=== PATIENT | male | born 1970 | race African-American/Black ===

== ENCOUNTER 2020-11-22 09:57 | Outpatient (REF) | payer OTHER, SELFPAY ==
--- NOTE | ~2020-11-22 | XR_ITS ---
EXAMINATION: XR FINGER, RIGHT CLINICAL INFORMATION: Pain COMPARISON: None TECHNIQUE: Three views of the right third finger. FINDINGS: Bone alignment is normal. No acute fracture or dislocation is seen. There is angulation of the shaft of the metacarpal bone questionable for old trauma. Joint spaces are normal. Soft tissues are normal. XR/XR finger RT min 2V IMPRESSION: Normal right third finger.
== END 2020-11-22 09:58 | disposition home or self-care (01) ==
LOC: HO.XRAY 09:57
PROVIDERS: PCP Internal Medicine; Visit Provider Internal Medicine
DX: M79.644 Pain in right finger(s) (principal)
CPT/HCPCS: 73140

== ENCOUNTER 2021-02-27 08:40 | Outpatient (REF) | payer OTHER, SELFPAY ==
[2021-02-27 10:17] LABS: Alanine Aminotransferase 15 U/L (0-40); Albumin Level 4.4 g/dL (3.5-5.0); Alkaline Phosphatase 49 U/L (39-117); Anion Gap 11 (12-20); Aspartate Amino Transferase 30 U/L (5-37); Bilirubin Total 1.3 mg/dL (0.0-1.0); Blood Urea Nitrogen 9 mg/dL (9-16); Calcium 9.1 mg/dL (8.4-10.2); Carbon Dioxide 28 mmol/L (22-29); Chloride 104 mmol/L (96-108); Cholesterol 138 mg/dL; Estimated Glomerular Filt Rate > 60; Glucose Fasting 93 mg/dL (60-99); HDL Cholesterol 62 mg/dL; LDL Cholesterol Calculated 65 mg/dl; Potassium 4.4 mmol/L (3.3-5.1); Sodium 139 mmol/L (135-145); Total Protein 6.9 g/dL (6.5-8.0); Triglycerides 55 mg/dL
[2021-02-27 10:22] LABS: PSA,Total (Free>4and<10) 0.33 ng/mL (0.00-4.00)
== END 2021-02-27 08:41 | disposition home or self-care (01) ==
LOC: HO.LAB 08:40
PROVIDERS: PCP Internal Medicine; Visit Provider Internal Medicine
DX: Z12.5 Encounter for screening for malignant neoplasm of prostate (principal); I10 Essential (primary) hypertension; E78.5 Hyperlipidemia, unspecified
CPT/HCPCS: 36415; 80053; 80061; 84153

== ENCOUNTER 2021-09-12 16:47 | Outpatient (REF) | payer OTHER, SELFPAY ==
[2021-09-12 18:23] LABS: Alanine Aminotransferase 15 U/L (0-40); Albumin Level 4.5 g/dL (3.5-5.0); Alkaline Phosphatase 61 U/L (39-117); Anion Gap 10 (12-20); Aspartate Amino Transferase 21 U/L (5-37); Bilirubin Total 0.7 mg/dL (0.0-1.0); Blood Urea Nitrogen 12 mg/dL (9-16); Calcium 9.5 mg/dL (8.4-10.2); Carbon Dioxide 31 mmol/L (22-29); Chloride 105 mmol/L (96-108); Estimated Glomerular Filt Rate > 60; Glucose Random 78 mg/dL (60-115); Sodium 142 mmol/L (135-145); Total Protein 7.6 g/dL (6.5-8.0)
== END 2021-09-12 16:48 | disposition home or self-care (01) ==
LOC: HO.LAB 16:47
PROVIDERS: Nurse Practitioner Family; Visit Provider Internal Medicine
DX: M25.512 Pain in left shoulder (principal)
CPT/HCPCS: 36415; 80053; 82550

== ENCOUNTER 2021-09-13 13:29 | Outpatient (REF) | payer OTHER, SELFPAY ==
--- NOTE | ~2021-09-13 | XR_ITS ---
EXAMINATION: XR SHOULDER, LEFT CLINICAL INFORMATION: Pain in the left shoulder COMPARISON: None TECHNIQUE: AP external rotation, Grashey, scapular Y, and axillary views of the left shoulder. FINDINGS: The bones and soft tissues are normal. No fracture. Glenohumeral and acromioclavicular alignment is anatomic with normal joint space. No abnormal soft tissue calcifications. XR/XR shoulder LT min 2V IMPRESSION: Normal left shoulder.
== END 2021-09-13 13:30 | disposition home or self-care (01) ==
LOC: HO.XRAY 13:29
PROVIDERS: PCP Internal Medicine; Visit Provider Nurse Practitioner Family
DX: M25.512 Pain in left shoulder (principal); R74.8 Abnormal levels of other serum enzymes
CPT/HCPCS: 73030

== ENCOUNTER 2021-11-21 10:42 | Outpatient (REF) | payer OTHER, SELFPAY ==
[2021-11-21 12:34] LABS: Alanine Aminotransferase 15 U/L (0-40); Albumin Level 4.4 g/dL (3.5-5.0); Alkaline Phosphatase 48 U/L (39-117); Anion Gap 14 (12-20); Aspartate Amino Transferase 22 U/L (5-37); Bilirubin Total 0.7 mg/dL (0.0-1.0); Blood Urea Nitrogen 12 mg/dL (9-16); Calcium 9.7 mg/dL (8.4-10.2); Carbon Dioxide 25 mmol/L (22-29); Chloride 106 mmol/L (96-108); Cholesterol 146 mg/dL; Estimated Glomerular Filt Rate > 60; Glucose Fasting 96 mg/dL (60-99); HDL Cholesterol 56 mg/dL; LDL Cholesterol Calculated 81 mg/dl; Potassium 4.2 mmol/L (3.3-5.1); Sodium 141 mmol/L (135-145); Total Protein 7.2 g/dL (6.5-8.0); Triglycerides 46 mg/dL
[2021-11-27 15:02] LABS: Vitamin D 25-OH, D2 <4 ng/mL; Vitamin D 25-OH, D3 11 ng/mL; Vitamin D 25-OH, Total 11 ng/mL (30-100)
== END 2021-11-21 10:43 | disposition home or self-care (01) ==
LOC: HO.LAB 10:42
PROVIDERS: PCP Internal Medicine; Visit Provider Internal Medicine
DX: E55.9 Vitamin D deficiency, unspecified (principal); E78.5 Hyperlipidemia, unspecified; R74.8 Abnormal levels of other serum enzymes; M25.512 Pain in left shoulder
CPT/HCPCS: 36415; 80053; 80061; 82306; 82550

== ENCOUNTER 2022-07-01 08:36 | Outpatient (REF) | payer OTHER, SELFPAY ==
[2022-07-01 13:35] LABS: Vitamin D 25-OH Total 42.4 ng/mL (>30)
== END 2022-07-01 08:37 | disposition home or self-care (01) ==
LOC: HO.LAB 08:36
PROVIDERS: PCP Internal Medicine; Visit Provider Nurse Practitioner Family
DX: R79.89 Other specified abnormal findings of blood chemistry (principal)
CPT/HCPCS: 36415; 82306

== ENCOUNTER 2022-11-08 12:36 | Outpatient (REF) | payer OTHER, SELFPAY ==
[2022-11-08 14:14] LABS: Alanine Aminotransferase 16 U/L (0-40); Albumin Level 4.2 g/dL (3.5-5.0); Alkaline Phosphatase 56 U/L (39-117); Anion Gap 15 (12-20); Aspartate Amino Transferase 21 U/L (5-37); Bilirubin Total 0.9 mg/dL (0.0-1.0); Blood Urea Nitrogen 10 mg/dL (9-16); Calcium 9.2 mg/dL (8.4-10.2); Carbon Dioxide 25 mmol/L (22-29); Chloride 105 mmol/L (96-108); Cholesterol 145 mg/dL; Estimated Glomerular Filt Rate > 60; Glucose Fasting 87 mg/dL (60-99); HDL Cholesterol 51 mg/dL; LDL Cholesterol Calculated 83 mg/dl; Potassium 4.2 mmol/L (3.3-5.1); Sodium 141 mmol/L (135-145); Total Protein 6.7 g/dL (6.5-8.0); Triglycerides 56 mg/dL
[2022-11-08 14:31] LABS: TSH reflex Free T4 0.76 uIU/mL (0.32-4.0)
== END 2022-11-08 12:37 | disposition home or self-care (01) ==
LOC: HO.LAB 12:36
PROVIDERS: PCP Internal Medicine; Visit Provider Nurse Practitioner Family
DX: Z13.29 Encounter for screening for other suspected endocrine disorder (principal); E78.5 Hyperlipidemia, unspecified; I10 Essential (primary) hypertension
CPT/HCPCS: 36415; 80053; 80061; 84443

== ENCOUNTER 2023-03-19 12:05 | Outpatient (REF) | payer OTHER, SELFPAY ==
--- NOTE | ~2023-03-19 | US_ITS ---
EXAMINATION: US THYROID CLINICAL INFORMATION: Localized swelling, mass and lump, neck. COMPARISON: None available. TECHNIQUE: Linear transducer grayscale and color Doppler examination with attention to the region of the thyroid. FINDINGS: SIZE: Measurements of the thyroid lobes and nodules are given in sagittal, anteroposterior and transverse dimensions respectively. Right Thyroid Lobe: 5.1 x 1.6 x 1.8 cm, volume 7.7 mL. Parenchyma: The gland echotexture is homogeneous. Thyroid vascularity is normal. Left Thyroid Lobe: 4.6 x 1.6 x 1.4 cm, volume 5.4 mL. Parenchyma: The gland echotexture is homogeneous. Thyroid vascularity is increased. Isthmus: 0.3 cm in maximum AP dimension. No focal thyroid nodule is seen. NODES: No lymphadenopathy is seen in the tissue surrounding the thyroid gland. Area of palpable concern corresponds to a nonenlarged 0.6 x 1.0 x 0.4 cm left cervical node not pathologically enlarged. US/US thyroid IMPRESSION: Unremarkable thyroid ultrasound. Area of palpable concern corresponds to a 0.4 cm short axis left cervical node, not pathologically enlarged. ACR TI-RADS RECOMMENDATION REFERENCE: Ultrasound-guided fine-needle aspiration, followup ultrasound, no further follow up. * TR1 (0 point) and TR2 (2 points): No FNA or follow up. * TR3 (3 points): FNA if more than or equal to 2.5 cm in maximum dimension, followup ultrasound in 1, 3 and 5 years if 1.5 to 2.4 cm in maximum dimension. * TR4 (4-6 points): FNA if more than or equal to 1.5 cm in maximum dimension, followup ultrasound in 1, 2, 3 and 5 years if 1 to 1.4 cm in maximum dimension. * TR5 (more than or equal to 7 points): FNA if more than or equal to 1 cm in maximum dimension, followup ultrasound every year for 5 years if 0.5 to 0.9 cm in maximum dimension. * TR3, TR4 or TR5 nodules that are below the size threshold for followup receive no follow up.
== END 2023-03-19 12:06 | disposition home or self-care (01) ==
LOC: HO.US 12:05
PROVIDERS: PCP Internal Medicine; Visit Provider Nurse Practitioner Family
DX: R22.1 Localized swelling, mass and lump, neck (principal)
CPT/HCPCS: 76536

== ENCOUNTER 2023-03-31 10:54 | Outpatient (AMB) | payer OTHER, SELFPAY ==
--- NOTE | 2023-03-31 11:05 | A.OFFPC_ITS ---
Vital Signs 03/31/23 11:10 Height 5 ft 11 in Weight 198 lb BMI 27.6 BP 112/80 Blood Pressure Location Lt brachial Position Sitting Intake Visit Reasons: HTN, HLD Intake Note: Patient here for a follow up HTN, HLD Block Tester Required: No Accompanied by: Self / Same As Patient Allergies No Known Allergies [No Known Allergies*] Allergy (Verified 03/31/23 11:23) Medication List - Last Reconciled 03/31/23 by Earlene Almonte MD albuterol sulfate 90 mcg/actuation (Ventolin HFA) 2 puffs inhalation Q4-6H PRN amlodipine 10 mg PO DAILY 90 days atorvastatin 20 mg PO DAILY 90 days cholecalciferol (vitamin D3) 50 mcg PO DAILY 90 days lisinopril 5 mg PO DAILY pantoprazole 40 mg PO DAILY Tobacco use date assessed: 03/12/23 Dental Screening Dental Screen Date: 03/31/23 Did you have a dental visit in the last 12 months?: Yes Did you have a dental problem in the last 6 months where you did not have access to dental care?: No Was dental information given to patient?: Patient has dentist HPI HPI Comments History of Present Illness Details This is a 52-year-old male with hypertension, dyslipidemia and GERD that comes today for follow-up on his conditions. Blood pressure stable. Last lipid panel was well controlled. GERD stable with PPIs as needed. Thyroid ultrasound done recently revealed that the thyroid is normal and he has cervical lymphadenopathy that is not pathologically enlarged. He denies any fever or night sweats. He said he has lost weight although has gained 2 lb from last office visit. I advised him to monitor his weight and if he keeps losing weight, start having night sweats or fever or fatigue to call us immediately. He also have hemorrhoids that bothers him and I will refer him to surgery. 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 [facility] Medical History (Updated 03/31/23 @ 11:40 by Earlene Almonte MD) Dyslipidemia Dyspnea Essential hypertension Finger pain, right GERD (gastroesophageal reflux disease) Overweight (BMI 25.0-29.9) Right ear impacted cerumen Surgical History History of pneumothorax History of surgery on arm History of wisdom tooth extraction Family History Father Diabetes Hypertension Mother Hypertension Paternal Grandfather Colon cancer Paternal Uncle Colon cancer Social History Housing: House Alcohol intake: current Alcohol intake frequency: a few times a week Alcohol type: wine Patient Tobacco Use Status: Former Tobacco user Tobacco use type: Cigarette e-Cigarette/Vaping Use: Never Used Second Hand Smoke Exposure: No service: No Current occupational status: employed Current occupational exposures/hazards: No Cognitive needs: No Hearing needs: No Vision needs: Yes (Glasses) Questionnaire Thrive Questionnaire Date Thrive assessed: 11/07/22 JOSE-7 AMB Questionnaire JOSE-7 Date JOSE - 7 assessed: 11/07/22 Source: Developed by Drs. Torito Garcia, Liset Benoit, Trey Chan and colleagues, with an educational bruna from [email or web address]. Review of Systems Const All systems reviewed & are unremarkable except as noted in HPI and below Eyes Reports no additional complaints, Denies change in vision and Denies other visual disturbances Card Denies chest pain at rest, Denies chest pain with activity, Denies edema, Denies irregular heart rhythm, Denies claudication, Denies dyspnea, Denies dyspnea on exertion, Denies orthopnea, Denies paroxysmal nocturnal dyspnea and Denies slow heart rate Resp Denies cough, Denies dyspnea and Denies dyspnea on exertion GI Denies abdominal pain, Denies change in bowel habits, Denies excessive flatus, Denies nausea and Denies vomiting Denies urinary hesitancy, Denies urinary incontinence and Denies urinary urgency Musc Denies abnormal gait, Denies atrophy, Denies deformity and Denies limited range of motion Skin/Breast Denies bleeding lesions, Denies changing lesions and Denies rash Neuro Denies abnormal gait and Denies lack of coordination Physical exam (Primary Care) Vital Signs: Last Vital Signs BP 112/80 03/31/23 11:10 BMI result Body Mass Index 27.6 Tobacco/Smoking Status: Tobacco use Status Tobacco use date assessed 03/12/23 03/31/23 11:09 Patient Tobacco Use Status Former Tobacco user 03/31/23 11:09 Tobacco use type Cigarette 03/31/23 11:09 e-Cigarette/Vaping Use Never Used 03/31/23 11:09 Thrive Assessment: Date of Thrive Assessment Date Thrive assessed 11/07/22 03/31/23 11:09 Eyes General: appearance normal, both eyes and all related structures Eyelids: Yes eyelids normal Conjunctivae: conjunctivae normal Neck Lymphatic: lymphadenopathy Resp Effort & Inspection: normal respiratory effort Auscultation: clear to auscultation bilaterally Cardio Jugular venous distension: no JVD Rate: regular rate Rhythm: regular rhythm Heart sounds: S1 normal heart sound present and S2 normal heart sound present Extrem General: Yes full ROM Assessment and Plan Assessment & Plan (1) Essential hypertension: Code(s): I10 - Essential (primary) hypertension Plan: Continue lisinopril and amlodipine. Blood pressure goal is equal or less than 130/80. (2) Dyslipidemia: Code(s): E78.5 - Hyperlipidemia, unspecified Plan: Continue statins. (3) GERD (gastroesophageal reflux disease): Code(s): K21.9 - Gastro-esophageal reflux disease without esophagitis Qualifiers: Esophagitis presence: esophagitis presence not specified Qualified Code(s): K21.9 - Gastro-esophageal reflux disease without esophagitis Plan: Continue PPIs. (4) Cervical lymphadenopathy: Code(s): R59.0 - Localized enlarged lymph nodes Plan: Not pathologically enlarged. This will be monitor. Orders: Referrals General Surgery Referral K64.4 - Residual hemorrhoidal skin tags Ophthalmology Referral H40.9 - Unspecified glaucoma Coding Level of Care Code Est Pt Level 4 (45002) Diagnoses Essential hypertension I10 Dyslipidemia E78.5 GERD (gastroesophageal reflux disease) K21.9 Esophagitis presence: esophagitis presence not specified Cervical lymphadenopathy R59.0 Time Spent (min) 21
[2023-03-31 11:10] VITALS: BP 112/80; BMI 27.6
== END 2023-03-31 11:29 | disposition home or self-care (01) ==
PROVIDERS: PCP Internal Medicine; Visit Provider Internal Medicine
DX: I10 Essential (primary) hypertension (principal); E78.5 Hyperlipidemia, unspecified; K21.9 Gastro-esophageal reflux disease without esophagitis; R59.0 Localized enlarged lymph nodes
CPT/HCPCS: 99214

== ENCOUNTER 2023-04-09 14:59 | Outpatient (AMB) | payer OTHER, SELFPAY ==
[2023-04-09 15:11] VITALS: BP 133/77; PULSE 66; BMI 27.9
--- NOTE | 2023-04-09 15:11 | A.OFFVIS_ITS ---
Intake Vital Signs 04/09/23 15:11 Height 5 ft 11 in Weight 200 lb BMI 27.9 BP 133/77 Blood Pressure Location Lt brachial Position Sitting Pulse 66 Intake Visit Reasons: Residual hemorrhoidal skin lesions Intake Note: This patient presents for an assessment for painful hemorrhoids. Patient c/o; reports pain, denies rectal bleeding, denies constipation. Dairy Lab Technician Required: No Accompanied by: Self / Same As Patient Allergies No Known Allergies [No Known Allergies*] Allergy (Verified 04/09/23 15:19) Medication List - Last Reconciled 04/09/23 by Emre Lovett MD albuterol sulfate 90 mcg/actuation (Ventolin HFA) 2 puffs inhalation Q4-6H PRN amlodipine 10 mg PO DAILY 90 days atorvastatin 20 mg PO DAILY 90 days cholecalciferol (vitamin D3) 50 mcg PO DAILY 90 days lisinopril 5 mg PO DAILY pantoprazole 40 mg PO DAILY HPI Residual hemorrhoidal skin lesions HPI Details 52-year-old male referred for recurrent perianal pain and drainage. He says that this has been going on for 5 years now. He says that about once or twice a month, he would noticed some swelling on an area of his anus with a lump. This then would drained spontaneously with blood. He says that this gets painful frequently. He says that this has been going on for so many years but this seems to be worsening so he decided to finally have this examined. He denies any purulent drainage. He denies any constipation. [facility] Medical History Anal pain Dyslipidemia Dyspnea Essential hypertension Finger pain, right GERD (gastroesophageal reflux disease) Overweight (BMI 25.0-29.9) Right ear impacted cerumen Surgical History History of pneumothorax History of surgery on arm History of wisdom tooth extraction Family History Father Diabetes Hypertension Mother Hypertension Paternal Grandfather Colon cancer Paternal Uncle Colon cancer Social History Housing: House Alcohol intake: current Alcohol intake frequency: a few times a week Alcohol type: wine Patient Tobacco Use Status: Former Tobacco user Tobacco use type: Cigarette e-Cigarette/Vaping Use: Never Used Second Hand Smoke Exposure: No service: No Current occupational status: employed Current occupational exposures/hazards: No Cognitive needs: No Hearing needs: No Vision needs: Yes (Glasses) Review of Systems Const Denies chills and Denies fever(s) Card Denies chest pain, Denies dyspnea and Denies dyspnea on exertion Resp Denies cough, Denies dyspnea and Denies dyspnea on exertion GI Reports hematochezia and Denies change in bowel habits Denies hematuria and Denies difficulty urinating Musc Denies back pain and Denies limited range of motion Neuro Denies focal weakness and Denies convulsions Psych Denies depression and Denies mood swings Physical Exam Vital Signs: Last Vital Signs Pulse 66 04/09/23 15:11 BP 133/77 04/09/23 15:11 BMI result Body Mass Index 27.9 Const General: comfortable and no acute distress Orientation/consciousness: patient oriented x3 Neck Neck: Yes no lymphadenopathy Resp Auscultation: clear to auscultation bilaterally Cardio Rhythm: regular rhythm GI Other: Rectal exam shows no obvious no induration, no lesions, small external hemorrhoids, anoscopy as described Palpation (GI): Soft to palpation, nontender and no guarding Neuro General: patient oriented x3 Office Procedures Anoscopy He was in estiven-knife position. The anoscope was gently inserted. A full examination of the entire anal canal was done. He had small internal hemorrhoids, with no obvious induration, no obvious internal sinus but he was tender diffusely mostly on the anterior area. There are no palpable masses. [id number] Assessment & Plan Assessment & Plan (1) Anal pain: Code(s): K62.89 - Other specified diseases of anus and rectum Plan: He describes anal pain with recurrent swelling and drainage as above. I do not see any obvious abscess or any obvious fistulous tract. He does have significant tenderness. I told him that I can bring him to the operating room for an exam under anesthesia. It is possible that he may have an occult fistula tract. I do not see any fissure at this time. Explained to him that technique of fistulotomy or seton placement as well as possible hemorrhoidectomy. I reviewed the risks i ncluding but not limited to bleeding and infections, as well as the benefits and alternatives. He wants to proceed as he has been miserable for many years. Coding Level of Care Code New Pt Level 3 (70514) Diagnoses Anal pain K62.89 CPT Codes Details - CPT: 11960-Troxvhui ([id number])
== END 2023-04-09 15:43 | disposition home or self-care (01) ==
PROVIDERS: PCP Internal Medicine; Referring Provider Internal Medicine; Visit Provider Surgery
DX: K62.89 Other specified diseases of anus and rectum (principal)
CPT/HCPCS: 46600; 99203

== ENCOUNTER → 2023-04-09 14:59 | Outpatient (BNVA) | payer OTHER, SELFPAY | PROVIDERS: PCP Internal Medicine; Referring Provider Internal Medicine; Visit Provider Surgery | DX: K62.89 Other specified diseases of anus and rectum (principal) | CPT/HCPCS: 46600 ==

== ENCOUNTER 2023-05-02 09:58 | Day surgery (SDC) | payer OTHER, SELFPAY ==
[2023-04-30 13:15] VITALS: BMI 27.9
--- NOTE | 2023-05-01 11:56 | HO.ANESPROP2 ---
Documented by User: Farzana Geiger NP 05/01/23 11:58 HPI - Anesthesia Eval Consult details Narrative: 52yo M for Exam under Anesthesia poss fistulotomy, poss seton placement, poss hemorrhoidectomy PMFSH Active Problems Active Problems: All Active Problems (Updated 04/09/23 @ 15:42 by Emre Lovett MD) Anal pain (Acute) Cervical lymphadenopathy (Acute) External hemorrhoid (Acute) Neck fullness (Acute) Glaucoma (Acute) Low vitamin D level (Acute) Screening for hypothyroidism (Acute) Elevated creatine kinase (Acute) Left shoulder pain (Acute) Overweight (BMI 25.0-29.9) (Acute) Dyspnea (Acute) Finger pain, right (Acute) Essential hypertension (Acute) Dyslipidemia (Acute) GERD (gastroesophageal reflux disease) (Acute) Right ear impacted cerumen (Acute) Past Medical History Medical History Anal pain Dyslipidemia Dyspnea Essential hypertension Finger pain, right GERD (gastroesophageal reflux disease) Overweight (BMI 25.0-29.9) Right ear impacted cerumen Family History Family History Father Diabetes Hypertension Mother Hypertension Paternal Grandfather Colon cancer Paternal Uncle Colon cancer Surgical History Surgical History History of pneumothorax History of surgery on arm History of wisdom tooth extraction Social History Social History Housing: House Alcohol intake: current Alcohol intake frequency: holidays/special occasions only Alcohol type: wine Patient Tobacco Use Status: Former Tobacco user Tobacco use type: Cigarette e-Cigarette/Vaping Use: Never Used Second Hand Smoke Exposure: No Are you DNR?: No Advance Directives: No Advance Directives Information Provided: Yes Nutrition Risks: No Nutritional Risk service: No Current occupational status: employed Current occupational exposures/hazards: No Cognitive needs: No Hearing needs: No Vision needs: Yes (Glasses) Meds Allergies Allergy/AdvReac Type Severity Reaction Status Date / Time No Known Allergies Allergy Verified 04/09/23 15:19 [No Known Allergies*] Exam Exam Date and Time: May 01, 2023 1156 Height,Weight and Vital Signs: Height 5 ft 11 in Weight 90.718 kg Pertinent Lab Results Pertinent Lab Results: Laboratory Tests 05/08/19 11/08/22 08:20 12:44 WBC 5.2 Hgb 15.2 Hct 43.8 Plt Count 249 Sodium 141 Potassium 4.2 Chloride 105 Carbon Dioxide 25 BUN 10 Creatinine 0.97 Assessment and Plan Assessment Anesthesia Assessment: Chart Reviewed Documented by User: Dar Berry MD 05/02/23 12:21 PMFSH Past Medical History Medical History Anal pain Dyslipidemia Dyspnea Essential hypertension Finger pain, right GERD (gastroesophageal reflux disease) Overweight (BMI 25.0-29.9) Right ear impacted cerumen Family History Family History Father Diabetes Hypertension Mother Hypertension Paternal Grandfather Colon cancer Paternal Uncle Colon cancer Family history of problems with anesthesia: No Surgical History Surgical History History of pneumothorax History of surgery on arm History of wisdom tooth extraction History of Problems with Anesthesia: No Social History Social History Housing: House Alcohol intake: current Alcohol intake frequency: holidays/special occasions only Alcohol type: wine Patient Tobacco Use Status: Former Tobacco user Tobacco use type: Cigarette e-Cigarette/Vaping Use: Never Used Second Hand Smoke Exposure: No Are you DNR?: No Advance Directives: No Advance Directives Information Provided: Yes Nutrition Risks: No Nutritional Risk service: No Current occupational status: employed Current occupational exposures/hazards: No Cognitive needs: No Hearing needs: No Vision needs: Yes (Glasses) Meds Allergies Allergy/AdvReac Type Severity Reaction Status Date / Time No Known Allergies Allergy Verified 04/09/23 15:19 [No Known Allergies*] Exam Airway Mallampati Class: I TM Dist: >3cm Neck ROM: Full Denture: Upper and Lower Heart: ok Lungs: ok Assessment and Plan Final Anesthetic Review Family History of Problems with Anesthesia: No History of Problems with Anesthesia: No NPO: Yes ASA Class: II Final Preanesthetic Review: No Changes in Pt Med Stat, Meds/Allgs Chart Reviewed, Consent Obtained/Reviewed and Anes Risks/Benef Reviewed Patient Risk: Low Procedure Risk: Low Anesthetic Plan Anesthetic Plan: GA (GERD is mild heartburn occ, no reflux.) and Agree w/ Assess. and Plan Disposition: Standard PACU
[2023-05-02] VITALS (9 sets, daily range): BP systolic 125–158; BP diastolic 88–127; PULSE 55–86; RESP 16–18; TEMP 36.4–37; O2SAT 96–98
[2023-05-02] MEDS: Lactated Ringers 1,000 ML 100 ML IVCONT (10:35)
--- NOTE | 2023-05-02 11:37 | MHC.SHP ---
Pre-Procedural Eval Section A Date of Service: 05/02/23 The patient is an INPATIENT: No Changes since office visit: No Cold of Flu in the past 2 weeks, No New Medical Problems, No Changes in Medication and No Patient answered all questions The History & Physical has been completed within 30 days and I have reviewed it.: Yes Section B Chief Complaint: Other specified diseases of anus and rectum Allergies: Allergies Allergy/AdvReac Type Severity Reaction Status Date / Time No Known Allergies Allergy Verified 04/09/23 15:19 [No Known Allergies*] Plan I have reviewed the history and physical and performed a pertinent physical examination on my patient. No changes have occurred unless specified. Time Spent With Patient Time: Total time managing care of this patient today ____ minutes.
--- NOTE | 2023-05-02 13:03 | P.OP_ITS ---
Operative Note Operative Note Date of Service: 05/02/23 Narrative: Preop diagnosis: Chronic anal pain Postop diagnosis: Large internal external hemorrhoids on the right side Procedure: Exam under anesthesia hemorrhoidectomy Surgeon: Emre Lovett MD Patient is a 52-year-old male who has had a long history of anal pain periodically. He says that he feels a ?lump outside the anus that gets tender. He thinks that this is draining periodically . He was uncomfortable in the office so I had reschedule him for exam under anesthesia. He understood the procedure as described in the consent form He was brought to the operating room. He was placed in prone estiven-knife positi on under general anesthesia via laryngeal mask airway. The buttocks were retracted with wide tape laterally. The perianal area was prepped and draped in the usual sterile fashion. A surgical time-out was done. The patient received Cefotan 2 g IV preoperatively I infiltrated the perianal area. I examined the perianal area and the ordered anal orifice circumferentially. I did not see any sinuses. I did not feel any induration. There was no fluctuance. There was no question of any fistulous disease I inserted the Christen Hutchins retractor and examined the anal canal circumferentially. Again there was no evidence of any induration or any fistulous disease. There was no fissure. There was no ulceration or any lesions There however was a large hemorrhoidal column on the right side. This was a mix of internal external and appeared to prolapse easily as well Since he had complained of pain and a mass, it is possible that he was feeling the prolapsing hemorrhoidal column I therefore decided to proceed with hemorrhoidectomy for this large column on the right side. I applied a Marin grasper on this to retract this in to the field. I made a [id number] stitch at the pedicle past the dentate line using a chromic 3-0. I made an incision around this hemorrhoidal column all the way to the perianal skin with a blade 15. I excised this hemorrhoidal column above the plane of sphincters along this incision using scissors. I closed the incision with a running chromic 3-0 stitch. Multiple hemostatic [id number] chromic 3-0 suture placed because of oozing areas on the hemorrhoidectomy site Once hemostasis was confirmed, I re-examined the entire anal canal there was no other lesion. There was note of good hemostasis. I placed a rolled Gelfoam into the anal canal for additional hemostasis. I infiltrated the perianal area with Marcaine 0.5% for postop analgesia. The procedure was completed The patient tolerated procedure well. There were no immediate complications. Initial and final counts of sponges and instruments were correct. Estimated blood loss was about 50 cc . The patient was extubated without difficulty and transferred to the recovery room with stable vital signs.
[2023-05-02] MEDS: Acetaminophen 325 MG TABLET 650 MG PO (13:35)
[2023-05-02] MEDS: fentaNYL citrate/PF 100 MCG/2 ML VIAL 50 MCG IVPUSH ×2 (13:37→13:45)
== END 2023-05-02 14:25 | disposition home or self-care (01) ==
PROVIDERS: PCP Internal Medicine; Visit Provider Surgery
PROC: (CPT 46255; principal; 2023-05-02 12:00)
DX: K62.89 Other specified diseases of anus and rectum (principal); G89.29 Other chronic pain; K64.8 Other hemorrhoids; K64.4 Residual hemorrhoidal skin tags; I10 Essential (primary) hypertension; E78.5 Hyperlipidemia, unspecified; E66.9 Obesity, unspecified; Z68.27 Body mass index [BMI] 27.0-27.9, adult; Z79.899 Other long term (current) drug therapy; Z87.891 Personal history of nicotine dependence
CPT/HCPCS: 46255; 88304; J1885; J2405; J2795; J3010

== ENCOUNTER → 2023-05-02 09:58 | Outpatient (BNV) | payer OTHER, SELFPAY | PROVIDERS: PCP Internal Medicine; Visit Provider Surgery | DX: K64.8 Other hemorrhoids (principal) | CPT/HCPCS: 46255 ==

== ENCOUNTER 2023-05-15 09:53 | Outpatient (AMB) | payer OTHER, SELFPAY ==
--- NOTE | 2023-05-15 09:55 | MHC.OFFVIS ---
Intake Intake Visit Reasons: S/p fistulotomy, seton & hemorrhoidectomy Intake Note: This patient presents for a post-op assessment status post EUA hemorrhoidectomy. Patient c/o; reports pain has subsided, denies rectal bleeding. 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 He tolerated procedure well. He currently denies significant complaints except her for some pain. He denies constipation. [facility] Medical History Anal pain Overweight (BMI 25.0-29.9) Dyspnea Finger pain, right Essential hypertension Dyslipidemia GERD (gastroesophageal reflux disease) Right ear impacted cerumen Surgical History History of hemorrhoidectomy (~05/02/23) History of pneumothorax History of surgery on arm History of wisdom tooth extraction Family History Father Diabetes Hypertension Mother Hypertension Paternal Grandfather Colon cancer Paternal Uncle Colon cancer Social History Housing: House Alcohol intake: current Alcohol intake frequency: holidays/special occasions only Alcohol type: wine Patient Tobacco Use Status: Former Tobacco user Tobacco use type: Cigarette e-Cigarette/Vaping Use: Never Used Second Hand Smoke Exposure: No service: No Current occupational status: employed Current occupational exposures/hazards: No Cognitive needs: No Hearing needs: No Vision needs: Yes (Glasses) Review of Systems Const Denies chills and Denies fever(s) Card Denies chest pain, Denies dyspnea and Denies dyspnea on exertion Resp Denies cough, Denies dyspnea and Denies dyspnea on exertion GI Denies hematochezia and Denies change in bowel habits Denies hematuria and Denies difficulty urinating Musc Denies back pain and Denies limited range of motion Neuro Denies focal weakness and Denies convulsions Psych Denies depression and Denies mood swings Physical Exam Const General: comfortable and no acute distress Resp Effort & Inspection: normal respiratory effort GI Other: Rectal exam shows the hemorrhoidectomy site to be healing well, no induration, no pus, no evidence of infection Assessment & Plan Assessment & Plan (1) External hemorrhoid: Code(s): K64.4 - Residual hemorrhoidal skin tags Plan: Status post hemorrhoidectomy. His incision is healing well. There is no evidence of any infection. Path report shows hemorrhoids. I had advised him to continue to do hot Sitz baths. He can otherwise follow up on a p.r.n. basis. Coding Level of Care Code Global (49704) Diagnoses External hemorrhoid K64.4
== END 2023-05-15 10:16 | disposition home or self-care (01) ==
PROVIDERS: PCP Internal Medicine; Visit Provider Surgery
DX: K64.4 Residual hemorrhoidal skin tags (principal)
CPT/HCPCS: 99024

== ENCOUNTER → 2023-05-15 09:53 | Outpatient (BNVA) | payer OTHER, SELFPAY | PROVIDERS: PCP Internal Medicine; Visit Provider Surgery ==

== ENCOUNTER 2023-06-26 10:38 | Outpatient (AMB) | payer OTHER, SELFPAY ==
--- NOTE | 2023-06-26 10:39 | A.OFFVIS_ITS ---
Intake Intake Visit Reasons: S/p fistulotomy, seton & hemorrhoidectomy Intake Note: This patient presents for a post-op follow-up assessment status post EUA hemorrhoidectomy. Patient c/o; reports no complaints at this time. 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 He says he now feels well and denies any significant pain. He has good bowel movements. [facility] Medical History Anal pain Overweight (BMI 25.0-29.9) Dyspnea Finger pain, right Essential hypertension Dyslipidemia GERD (gastroesophageal reflux disease) Right ear impacted cerumen Surgical History History of hemorrhoidectomy (~05/02/23) History of pneumothorax History of surgery on arm History of wisdom tooth extraction Family History Father Diabetes Hypertension Mother Hypertension Paternal Grandfather Colon cancer Paternal Uncle Colon cancer Social History Housing: House Alcohol intake: current Alcohol intake frequency: holidays/special occasions only Alcohol type: wine Patient Tobacco Use Status: Former Tobacco user Tobacco use type: Cigarette e-Cigarette/Vaping Use: Never Used Second Hand Smoke Exposure: No service: No Current occupational status: employed Current occupational exposures/hazards: No Cognitive needs: No Hearing needs: No Vision needs: Yes (Glasses) Review of Systems Const Denies chills and Denies fever(s) Card Denies chest pain, Denies dyspnea and Denies dyspnea on exertion Resp Denies cough, Denies dyspnea and Denies dyspnea on exertion GI Denies hematochezia and Denies change in bowel habits Denies hematuria and Denies difficulty urinating Musc Denies back pain and Denies limited range of motion Neuro Denies focal weakness and Denies convulsions Psych Denies depression and Denies mood swings Physical Exam Const General: comfortable and no acute distress Resp Effort & Inspection: normal respiratory effort GI Other: Rectal exam - hemorrhoidectomy site is completely healed. No induration, no discharge, no redness Assessment & Plan Assessment & Plan (1) External hemorrhoid: Code(s): K64.4 - Residual hemorrhoidal skin tags Plan: Status post hemorrhoidectomy. His incision is now well healed. He feels well overall. I had reminded him to avoid straining and constipation. He can follow up on a p.r.n. basis. Coding Level of Care Code Global (59252) Diagnoses External hemorrhoid K64.4
== END 2023-06-26 11:07 | disposition home or self-care (01) ==
PROVIDERS: PCP Internal Medicine; Visit Provider Surgery
DX: K64.4 Residual hemorrhoidal skin tags (principal)
CPT/HCPCS: 99024

== ENCOUNTER → 2023-06-26 10:38 | Outpatient (BNVA) | payer OTHER, SELFPAY | PROVIDERS: PCP Internal Medicine; Visit Provider Surgery ==

== ENCOUNTER 2023-10-01 08:59 | Outpatient (AMB) | payer OTHER, SELFPAY ==
--- NOTE | 2023-10-01 09:00 | A.OFFPC_ITS ---
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 Accompanied by: Self / Same As Patient Allergies No Known Allergies [No Known Allergies*] Allergy (Verified 10/01/23 09:11) Medication List - Last Reconciled 10/01/23 by Earlene Almonte MD albuterol sulfate 90 mcg/actuation (Ventolin HFA) 2 puffs inhalation Q4-6H PRN amlodipine 10 mg PO DAILY 90 days atorvastatin 20 mg PO DAILY 90 days cholecalciferol (vitamin D3) 50 mcg PO DAILY 90 days ibuprofen 600 mg PO Q6H PRN lisinopril 5 mg PO DAILY pantoprazole 40 mg PO DAILY Tobacco use date assessed: 10/01/23 Dental Screening Dental Screen Date: 10/01/23 Did you have a dental visit in the last 12 months?: No Did you have a dental problem in the last 6 months where you did not have access to dental care?: No Was dental information given to patient?: Patient has dentist HPI HPI Comments History of Present Illness Details This is a 52-year-old male that comes for his physical exam. Last colonoscopy was 2018 showing hyperplastic polyp but since he has family history positive for colon cancer in paternal grandfather gastroenterology 1 to repeated in 5 years. No chest pain or shortness of breath. [facility] Medical History Anal pain Overweight (BMI 25.0-29.9) Dyspnea Finger pain, right Essential hypertension Dyslipidemia GERD (gastroesophageal reflux disease) Right ear impacted cerumen Surgical History History of hemorrhoidectomy (~05/02/23) History of pneumothorax History of surgery on arm History of wisdom tooth extraction Family History Father Diabetes Hypertension Mother Hypertension Paternal Grandfather Colon cancer Paternal Uncle Colon cancer Social History Housing: House Alcohol intake: current Alcohol intake frequency: holidays/special occasions only Alcohol type: wine Comment: pt has anal packing Patient Tobacco Use Status: Former Tobacco user Tobacco use type: Cigarette e-Cigarette/Vaping Use: Never Used Second Hand Smoke Exposure: No service: No Current occupational status: employed Current occupational exposures/hazards: No Cognitive needs: No Hearing needs: No Vision needs: Yes (Glasses) Questionnaire PHQ-9 Over the last 2 weeks, how often have you been bothered by any of the following problems? 1. Little interest or pleasure in doing things: not at all 2. Feeling down, depressed, or hopeless: not at all 3. Trouble falling or staying asleep, or sleeping too much: not at all 4. Feeling tired or having little energy: not at all 5. Poor appetite or overeating: not at all 6. Feeling bad about yourself - or that you are a failure or have let yourself or your family down: not at all 7. Trouble concentrating on things, such as reading the newspaper or watching television: not at all 8. Moving or speaking so slowly that other people could have noticed. Or the opposite - being so fidgety or restless that you have been moving around a lot more than usual: not at all 9. Thoughts that you would be better off or of hurting yourself in some way: not at all Total score: 0 Depression Screening Interpretation: Negative Depression Screening Done: Yes 62765 - PHQ-9 Billing: Yes Source: Developed by Drs. Torito Garcia, Liset Benoit, Trey Chan and colleagues, with an educational bruna from [employer]. Thrive Questionnaire Date Thrive assessed: 10/01/23 I am a: Patient What is your living situation today?: I have a steady place to live Within the past 12 months, did the food you bought not last and you didn't have the money to get more?: Never true Within the past 12 months, did you worry whether your food would run out before you got money to buy more?: Never true Do you have trouble paying for medicines?: No Do you have trouble getting transportation to medical appointments?: No Do you have trouble paying your heating and electricity bill?: No Do you have trouble taking care of your child, family member or friend?: No Do you have trouble with day-to-day activities such as bathing, preparing meals, shopping, managing finances, etc.?: No Are you currently unemployed and looking for a job?: No Are you interested in more education?: No Please select the resources that you would like help with: None Currently or been in a relationship where the following occur: no concerns reported THRIVE Score: 0 AUDIT C Alcohol Use Questionnaire (AUDIT-C) 1. How often do you have a drink containing alcohol?: 4 or more times a week 2. How many drinks containing alcohol do you have on a typical day when you are drinking?: 1 or 2 3. How often do you have six or more drinks on one occasion?: Never Total Score: 4 Score Reviewed/Action Taken: No JOSE-7 AMB Questionnaire JOSE-7 Date JOSE - 7 assessed: 10/01/23 Feeling nervous, anxious, or on edge: 0 = Not at all Not being able to stop or control worryin = Not at all Worrying too much about different things: 0 = Not at all Trouble relaxin = Not at all Being so restless that it is hard to sit still: 0 = Not at all Becoming easily annoyed or irritable: 0 = Not at all Feeling afraid as if something awful might happen: 0 = Not at all Total JOSE-7 score (0-4 normal; 5-9 mild; 10-14 moderate; 15-21 severe): 0 Source: Developed by Drs. Torito Garcia, Liset Benoit, Trey Chan and colleagues, with an educational bruna from [employer]. JOSE-7 Assessment Billing JOSE-7 Assessment Tool: JOSE-7 Assessment 64963 Review of Systems Const All systems reviewed & are unremarkable except as noted in HPI and below Eyes Reports no additional complaints, Denies change in vision and Denies other visual disturbances Card Denies chest pain at rest, Denies chest pain with activity, Denies edema, Denies irregular heart rhythm, Denies claudication, Denies dyspnea, Denies dyspnea on exertion, Denies orthopnea, Denies paroxysmal nocturnal dyspnea and Denies slow heart rate Resp Denies cough, Denies dyspnea and Denies dyspnea on exertion GI Denies abdominal pain, Denies change in bowel habits, Denies excessive flatus, Denies nausea and Denies vomiting Denies urinary hesitancy, Denies urinary incontinence and Denies urinary urgency Musc Denies abnormal gait, Denies atrophy, Denies deformity and Denies limited range of motion Skin/Breast Denies bleeding lesions, Denies changing lesions and Denies rash Neuro Denies abnormal gait, Denies behavioral changes, Denies confusion and Denies lack of coordination Psych Denies behavioral changes and Denies confusion Physical exam (Primary Care) Vital Signs: Last Vital Signs BP 120/86 10/01/23 09:04 BMI result Body Mass Index 28.0 Tobacco/Smoking Status: Tobacco use Status Tobacco use date assessed 10/01/23 10/01/23 09:08 Patient Tobacco Use Status Former Tobacco user 10/01/23 09:02 Tobacco use type Cigarette 10/01/23 09:02 e-Cigarette/Vaping Use Never Used 10/01/23 09:02 PHQ-9: PHQ-9 Score PHQ-9: Total score 0 10/01/23 09:21 Depression Screening Interpretation: Negative Thrive Assessment: Date of Thrive Assessment Date Thrive assessed 10/01/23 10/01/23 09:02 Currently or been in a relationship where the following occur: no concerns reported Const General: No confusion Orientation/consciousness: patient oriented x3 and No confusion HENMT Head: Yes normal to inspection, Yes normocephalic and Yes atraumatic Ears: external ears normal Eyes General: appearance normal, both eyes and all related structures Eyelids: Yes eyelids normal Conjunctivae: conjunctivae normal Neck Neck: Yes normal visual inspection and Yes supple Resp Effort & Inspection: normal respiratory effort Auscultation: clear to auscultation bilaterally Cardio Jugular venous distension: no JVD Rate: regular rate Rhythm: regular rhythm Heart sounds: S1 normal heart sound present and S2 normal heart sound present GI Inspection: Yes normal to inspection Palpation (GI): Soft to palpation and nontender Auscultation: normal bowel sounds Skin General skin exam: no rashes or lesions noted Neuro General: patient oriented x3, no focal motor deficits and No confusion Extrem General: Yes full ROM Psych Appearance: grossly normal Office Procedures Flu Questionnaire Does the patient have a severe egg allergy?: No Does the patient have severe life threatening allergies?: No Does the patient have a fever or illness today?: No Has the patient ever had Guillain-[place] Syndrome?: No Has the patient ever had any past reaction to a flu shot?: No Immunizations flu vacc [id number] 6mos up(PF) 60 mcg(15 mcgx4)/0.5 mL IM syringe Performing Provider: Earlene Almonte MD [facility] Administered by: HAYLEE Fernandez on 10/01/23 09:25 Dose Route Admin Location Dispensed Lot Number Expiration Date NDC Epic Anesthesia Analyst 0.5 mL IM Left Deltoid 0.5 mL [id number] 03/07/24 06763-100-50 [employer] VIS Given Date VIS Provided VIS Publication Date 10/01/23 Single Vaccine 21 Eligibility Eligibility Date Funding Source Not VFC Eligible 10/01/23 Private Assessment and Plan Assessment & Plan (1) Physical exam: Code(s): Z00.00 - Encounter for general adult medical examination without abnormal findings Plan: Repeat in a year. Orders: Orders Influenza [id number] Immunization Today Z23 - Encounter for immunization Lipid Panel Today E78.5 - Hyperlipidemia, unspecified Comprehensive [place]. Panel Fast Today I10 - Essential (primary) hypertension Referrals Open Access Screening Colonoscopy Referral Z12.11 - Encounter for screening for malignant neoplasm of colon Coding Level of Care Code Est Pt Prev Care 40-64y(60270) Diagnoses Physical exam Z00.00 Additional Codes JOSE-7 Assessment Billing - JOSE-7 Assessment Tool: JOSE-7 Assessment 46416 ([id number]) Time Spent (min) 31
[2023-10-01 09:04] VITALS: BP 120/86; BMI 28.0
== END 2023-10-01 09:26 | disposition home or self-care (01) ==
PROVIDERS: PCP Internal Medicine; Visit Provider Internal Medicine
DX: Z00.00 Encounter for general adult medical examination without abnormal findings (principal); Z23 Encounter for immunization
CPT/HCPCS: 90471; 90686; 99396

== ENCOUNTER → 2024-10-05 08:33 | Outpatient (BNVA) | payer SELFPAY | PROVIDERS: PCP Internal Medicine; Visit Provider Internal Medicine ==

== ENCOUNTER 2025-09-05 10:28 | Outpatient (REF) | payer OTHER, SELFPAY ==
[2025-09-05 11:35] LABS: Hematocrit 41.7 % (42.0-52.0); Hemoglobin 14.4 g/dl (14.0-18.0); Mean Corpuscular HGB Conc 34.5 g/dl (31.0-36.0); Mean Corpuscular Hemoglobin 27.1 pg (27.0-33.0); Mean Corpuscular Volume 78.5 fL (80.0-98.0); NRBC Abs Auto 0.000 X10*3/uL (0.0-0.012); NRBC Pct Auto 0.0 /100WBC (0.0-0.2); Platelet Count 250 X10*3/uL (160-400); Red Blood Count 5.31 X10*6/uL (4.60-5.80); White Blood Count 5.8 X10*3/uL (4.8-10.8)
[2025-09-05 11:45] LABS: Appearance Urine Clear; Glucose Urine UA Negative (Negative); PH 5.5 (5.0-9.0); Specific Gravity - Urine 1.020 (1.005-1.025)
[2025-09-05 12:34] LABS: Alanine Aminotransferase 20 U/L (0-40); Albumin Level 4.6 g/dL (3.5-5.0); Alkaline Phosphatase 49 U/L (39-117); Anion Gap 10 (12-20); Aspartate Amino Transferase 31 U/L (5-37); Blood Urea Nitrogen 12 mg/dL (9-16); Calcium 9.5 mg/dL (8.4-10.2); Carbon Dioxide 30 mmol/L (22-29); Chloride 107 mmol/L (96-108); Cholesterol 221 mg/dL (<200); Estimated Glomerular Filt Rate > 60; HDL Cholesterol 61 mg/dL (>40); Potassium 4.3 mmol/L (3.3-5.1); Sodium 143 mmol/L (135-145); Total Protein 7.1 g/dL (6.5-8.0); Triglycerides 84 mg/dL (<150)
== END 2025-09-05 10:29 | disposition home or self-care (01) ==
LOC: HO.LAB 10:28
PROVIDERS: PCP Internal Medicine; Visit Provider Internal Medicine
DX: Z00.00 Encounter for general adult medical examination without abnormal findings (principal); I10 Essential (primary) hypertension; E78.5 Hyperlipidemia, unspecified; Z13.1 Encounter for screening for diabetes mellitus
CPT/HCPCS: 36415; 80053; 80061; 81003; 83036; 84443; 85027

== ENCOUNTER 2025-09-05 10:28 | Outpatient (AMB) | payer OTHER, SELFPAY ==
--- NOTE | 2025-09-05 10:32 | A.OFFPC_ITS ---
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 Required: No Accompanied by: Spouse Allergies No Known Allergies (No Known Allergies*) Allergy (Verified 09/05/25 10:33) Medication List - Last Reconciled 09/05/25 by Yadira Monroe MD amlodipine 10 mg PO DAILY 90 days dorzolamide 2% 1 drp ophthalmic (eye) BID ibuprofen 800 mg PO ONCE latanoprost 0.005% drps ophthalmic (eye) lisinopril 5 mg PO DAILY multivitamin 1 tab PO DAILY Tobacco use date assessed: 09/05/25 Dental Screening Dental Screen Date: 09/05/25 Did you have a dental visit in the last 12 months?: Yes Did you have a dental problem in the last 6 months where you did not have access to dental care?: No Was dental information given to patient?: Patient has dentist HPI HPI Comments History of Present Illness Details The patient is a 54 year old male with PMH of HLD, HTN, headache presenting with worsening daily headaches and a growing lump in his scrotum. He reports having headaches for months, which have recently progressed to a daily occurrence. The headaches are triggered by coughing, sneezing, or bending over and can sometimes be localized to the left side or affect both sides. He takes ibuprofen for relief, which he finds helpful, but tries not to take it daily. He denies waking up with headaches, ringing in his ears, tingling, numbness, falls, or lightheadedness, though he does have naturally blurry vision due to glaucoma. He also had an episode of epistaxis last week when blowing his nose. The patient also reports a painless lump in his scrotum, located next to one of his testicles, which has been present for several months and is perceived to be growing in size. His past medical history is significant for hypertension, for which he takes amlodipine 10 mg and lisinopril 5 mg. He was prescribed atorvastatin for hyperlipidemia but has not taken it recently due to a problem with the renewal. He has a history of acid reflux, which is now resolved, and he no longer takes pantoprazole or uses an albuterol inhaler. The patient exercises every other day. [facility] Medical History Anal pain Overweight (BMI 25.0-29.9) Dyspnea Finger pain, right Essential hypertension Dyslipidemia GERD (gastroesophageal reflux disease) Right ear impacted cerumen Surgical History History of hemorrhoidectomy (~05/02/23) History of pneumothorax History of surgery on arm History of wisdom tooth extraction Family History Father Diabetes Hypertension Mother Hypertension Paternal Grandfather Colon cancer Paternal Uncle Colon cancer Social History Housing: House Alcohol intake: current Alcohol intake frequency: holidays/special occasions only Alcohol type: wine Comment: pt has anal packing Patient Tobacco Use Status: Former Tobacco user Tobacco use type: Cigarette e-Cigarette/Vaping Use: Never Used Second Hand Smoke Exposure: No service: No Current occupational status: employed Current occupation: [employer] driver Current occupational exposures/hazards: No Cognitive needs: No Hearing needs: No Vision needs: Yes (Glasses) Questionnaire Thrive Questionnaire Date Thrive assessed: 10/05/24 I am a: Patient What is your living situation today?: I have a steady place to live Within the past 12 months, did the food you bought not last and you didn't have the money to get more?: Never true Within the past 12 months, did you worry whether your food would run out before you got money to buy more?: Never true Do you have trouble paying for medicines?: No Do you have trouble getting transportation to medical appointments?: No Do you have trouble paying your heating and electricity bill?: No Do you have trouble taking care of your child, family member or friend?: No Do you have trouble with day-to-day activities such as bathing, preparing meals, shopping, managing finances, etc.?: No Are you currently unemployed and looking for a job?: Yes Are you interested in more education?: No Currently or been in a relationship where the following occur: No concerns reported THRIVE Score: 0 JOSE-7 AMB Questionnaire JOSE-7 Date JOSE - 7 assessed: 10/01/23 Source: Developed by Drs. Torito Garcia, Liset Benoit, Trey Chan and colleagues, with an educational bruna from [employer]. Review of Systems Const Details: As per HPI. Physical exam (Primary Care) Vital Signs: Last Vital Signs Temp 97.8 F 09/05/25 10:34 Pulse 57 09/05/25 10:34 Resp 18 09/05/25 10:34 BP 134/92 H 09/05/25 10:34 Pulse Ox 97 09/05/25 10:34 Oxygen Delivery Method Room Air 09/05/25 10:34 BMI result Body Mass Index 28.0 Tobacco/Smoking Status: Tobacco use Status Tobacco use date assessed 09/05/25 09/05/25 10:41 Patient Tobacco Use Status Former Tobacco user 09/05/25 10:41 Tobacco use type Cigarette 09/05/25 10:41 e-Cigarette/Vaping Use Never Used 09/05/25 10:41 Thrive Assessment: Date of Thrive Assessment Date Thrive assessed 10/05/24 09/05/25 10:41 Currently or been in a relationship where the following occur: No concerns reported Const Other: Pertinent findings are in BOLD GENERAL APPEARANCE NAD, activity normal for age, well developed/ well nourished, no cyanosis, pallor, or diaphoresis. EYES lids/conjunctiva normal. EARS/NOSE/THROAT Mucous membranes moist, nares normal, lips/teeth normal uvula midline without oral pharyngeal erythema, exudate or swelling TMs normal bilaterally. No lymphangitis/lymphedema. HEAD/NECK normocephalic atraumatic, no facial trauma, neck is supple. RESPIRATORY respiratory effort normal, speaks in full sentences, no tripod position, no accessory muscle use. Lungs clear to auscultation without rhonchi, wheezes, rales CARDIAC Regular rate and rhythm, no edema. ABDOMINAL Soft, ND/NT. No evidence of fluid wave. No pulsatile masses on exam, rebound tenderness, Hernandez sign or pain over Mcburney's point. MUSCLES/EXTREMITIES No abnormal range of motion, no swelling. SKIN Warm, pink and dry. No rashes, dermatoses, petechiae or lesions. NEUROLOGICAL Speech is clear and appropriate. Normal level of consciousness. Gait and coordination are normal. 5/5 strength in all extremities. PSYCH Normal mood and affect. Judgement/competence is appropriate 3 cm lump on the epididymis of right testicle. No tenderness or skin changes o palpation. Coding Level of Care Code Est Pt Level 4 (47532) Diagnoses Headache R51.9 Lump in the testicle N50.89 Routine physicl lab exam Z00.00 Dyslipidemia E78.5 Essential hypertension I10 Time Spent (min) 30 Assessment & Plan Assessment & Plan (1) Headache: Code(s): R51.9 - Headache, unspecified Category: Medical Plan: - Given the daily nature of the headaches and their duration, a CT scan of the head will be ordered for further imaging. - Neuro exam was negative. - Continue using ibuprofen as needed for pain control, with a maximum of three times per day. (2) Lump in the testicle: Code(s): N50.89 - Other specified disorders of the male genital organs Category: Medical Plan: - An ultrasound of the scrotum will be ordered to evaluate the lump. - A UA with reflex microscopy ordered. - Depending on the results, a referral to a specialist may be necessary for further evaluation. (3) Routine physicl lab exam: Code(s): Z00.00 - Encounter for general adult medical examination without abnormal findings Category: Medical (4) Dyslipidemia: Code(s): E78.5 - Hyperlipidemia, unspecified Category: Medical Plan: - The patient has not been taking atorvastatin 20 mg due to a renewal issue. - Fasting lab work will be ordered to check his lipid levels and determine if he needs to resume the medication. (5) Essential hypertension: Code(s): I10 - Essential (primary) hypertension Category: Medical Plan: - The patient's blood pressure is 134/92 mmHg, which is considered good. - He will continue his current regimen of amlodipine 10 mg and lisinopril 5 mg. Plan I have discussed the plan with the patient. Due to his worsening daily headaches, I am ordering a CT scan of his head to investigate further. For the growing lump in his private area, I am ordering an ultrasound of the scrotum to determine its nature, and we may need a Urology referral depending on the findings. We also discussed his overdue lab work and the fact he has not been taking his atorvastatin. I will place an order for blood tests, preferably fasting, to check his levels and see if he needs to restart the medication. We will follow up in four weeks to review all the results. Orders: Orders CT head/brain wo IV con Today R51.9 - Headache, unspecified US scrotum doppler Today N50.89 - Other specified disorders of the male genital organs Complete Blood Count no Diff Today Z00.00 - Encounter for general adult medical examination without abnormal findings Hemoglobin A1c Today Z00.00 - Encounter for general adult medical examination without abnormal findings UA and rflx microscopic Today Z00.00 - Encounter for general adult medical examination without abnormal findings Comprehensive Met. Panel Today Z00.00 - Encounter for general adult medical examination without abnormal findings TSH reflex Free T4 Today Z00.00 - Encounter for general adult medical examinat ion without abnormal findings Lipid Panel Today Z00.00 - Encounter for general adult medical examination without abnormal findings Medications: Changed From ibuprofen 800 mg PO ONCE pain To ibuprofen 600 mg PO Q6H PRN 30 tabs 0RF pain
[2025-09-05 10:34] VITALS: BP 134/92; PULSE 57; RESP 18; TEMP 36.6; O2SAT 97; BMI 28.0
--- OUTSIDE RECORDS SUMMARY | 2025-09-05 11:53 | XMS_ITS | Clinical Summary ---
Author Organization [facility] it Address [address] [place] [address] Care Team Providers Care Cancellation Clerk Name Role Phone Unavailable Primary Care Provider Unavailabl e Social History Tobacco Use Types Packs/Day Years Used Date Smoking Tobacco: Never Assessed Sex and Gender Information Value Date Recorded Sex Assigned at Not on file Legal Sex Male 10:07 AM EST Gender Identity Not on file Sexual Orientation Not on file Plan of Treatment Health Maintenance Due Date Last Done Comments Colorectal Cancer Screening: Colonoscopy 1969 DTaP,Tdap,and Td Vaccines (1 - Tdap) 1988 Hepatitis B Vaccines (1 of 3 - 19+ 3-dose series) 1988 Pneumococcal Vaccine: 50+ Ye ars (1 of 1 - PCV) 12/01/2019 Zoster Vaccines (1 of 2) 12/01/2019 Cholesterol Screening (Lipid Panel) 08/11/2022 HIV Screening 08/11/2022 Hepatitis C Screening 08/11/2022 Social Influencers of Health Screening 08/11/2022 Depression Screening 09/08/2024 COVID-19 Vaccine (1 - 2024-2 6 season) 2025 Influenza Vaccine (#1) 2025 RSV Immunization Adult Patie nts (1 - 1-dose 75+ series) 2044 HIB Vaccines Aged Out No longer eligi ble based on patient's age to complete this topic HPV Vaccines Aged Out No longer eligi ble based on patient's age to complete this topic Hepatitis A Vaccines Aged Out No long er eligible based on patient's age to complete this topic IPV Vaccines Aged Out No longer eligi ble based on patient's age to complete this topic MMR Vaccines Aged Out No longer eligi ble based on patient's age to complete this topic Meningococcal ACWY Vaccine Aged Out N o longer eligible based on patient's age to complete this topic Meningococcal B Vaccine Aged Out No l onger eligible based on patient's age to complete this topic RSV Immunization Patients Un kallie 20 months Aged Out No longer eligible b ased on patient's age to complete this topic Varicella Vaccines Aged Out No longer eligible based on patient's age to complete this topic
== END 2025-09-05 11:04 | disposition home or self-care (01) ==
LOC: HO.HMCH 10:29
PROVIDERS: PCP Internal Medicine; Visit Provider Internal Medicine
DX: R51.9 Headache, unspecified (principal); N50.89 Other specified disorders of the male genital organs; Z00.00 Encounter for general adult medical examination without abnormal findings; E78.5 Hyperlipidemia, unspecified; I10 Essential (primary) hypertension